=== PATIENT | male | born 1935 | race Caucasian/White ===

== ENCOUNTER 2017-04-26 12:15 | Emergency (ER) | payer MEDICARE, MEDICAID ==
[2017-04-26 17:08] VITALS: BP 146/65
--- NOTE | 2017-04-26 17:16 | UC ---
Respiratory Complaint HPI - HPI Summary HPI Summary: Cough x 4 days. Hoarseness, No SOB. Some sweats and chills. - History of Current Complaint Stated Complaint: HEAD COLD Time Seen by Provider: 04/26/17 17:02 Hx Obtained From: Patient Onset/Duration: Sudden Onset, Lasting Days - 4, Still Present Timing: Constant Severity Initially: Moderate Severity Currently: Moderate Character: Cough: Productive - dark yellow in the morning. Aggravating Factors: Nothing Alleviating Factors: Nothing Associated Signs And Symptoms: Positive: Fever, URI, Nasal Congestion, Hoarseness. Negative: Dyspnea, Pleuritic Chest Pain, Sinus Discomfort - Allergies/Home Medications Allergies/Adverse Reactions: Allergies Allergy/AdvReac Type Severity Reaction Status Date / Time No Known Allergies Allergy Verified 04/26/17 16:55 Home Medications: Home Medications Atorvastatin* [Lipitor 40 MG*] 40 mg PO QAM 04/26/17 [History Confirmed 04/26/17 ] [email or web address] ER TAB [Mucinex*] 600 mg PO Q4HR PRN 04/26/17 [History Confirmed 01/31] PMH/Surg Hx/FS Hx/Imm Hx Previously Healthy: Yes - Surgical History Surgical History: Yes - Family History Known Family History: Positive: Cardiac Disease, Hypertension, Diabetes - Social History Occupation: Retired Lives: With Family Substance Use Type: None Smoking Status (MU): Former Smoker Have You Smoked in the Last Year: No Review of Systems Constitutional: Fever Eyes: Drainage, Eye Redness ENT: Sore Throat Respiratory: Cough Is Patient Immunocompromised?: No All Other Systems Reviewed And Are Negative: Yes Physical Exam Triage Information Reviewed: Yes Appearance: No Pain Distress, Well-Nourished, Ill-Appearing Vital Signs Reviewed: Yes Eyes: Positive: Conjunctiva Inflamed - OU, Discharge - on lashes OD>OS ENT: Positive: TMs normal - obscurred by wax AD> Neck exam: Normal Respiratory: Positive: Wheezing - expiratory wheeze with cough Cardiovascular: Positive: Murmur:Sys:Grade _?_/ - 2/6 Musculoskeletal Exam: Normal Neurological Exam: Normal Psychological Exam: Normal Skin Exam: Normal Respiratory Course/Dx - Differential Dx/Diagnosis Differential Diagnosis/HQI/PQRI: Asthma, Lower Resp Infection, Sinusitis Provider Diagnoses: Acute URI. Acute bronchospasm Discharge - Discharge Plan Condition: Stable Disposition: HOME Prescriptions: Erythromycin OPTH OINT* [Erythromycin 0.5% OPTH OINT*] 1 applic BOTH EYES TID # 3.5 gm predniSONE TAB* [Deltasone TAB*] 20 mg PO DAILY #18 tab Patient Education Materials: Upper Respiratory Infection (ED), Bronchospasm (ED ), Prednisone (By mouth), Conjunctivitis (ED) Referrals: Abida Harrison MD [Primary Care Provider] - Additional Instructions: Start the prednisone in the morning. EYE OINTMENT USE: Wash hands. Place 1/4" strip across tip of finger. Pull lower lid down with the index finger and stabilize the ointment finger with the middle finger and scrape the ointment off on the lid. Pull the lid out and let go as you look down.
== END 2017-04-26 17:45 | disposition home or self-care (01) ==
LOC: UCCORT 12:15
DX: J06.9 Acute upper respiratory infection, unspecified (principal); J98.01 Acute bronchospasm; Z87.891 Personal history of nicotine dependence
CPT/HCPCS: 99202; G0463